=== PATIENT | female | born 1940 | race Caucasian/White ===

== ENCOUNTER → 2017-12-06 | Outpatient (CLI) | payer MEDICARE ==
[~2017-12-06] MED LIST: ATEN100T93 PO; BUSP10TA95 PO; CALC-941 PO; CEFU250T11 PO; CLON-329 PO; IOPAMIDOL 76% 75 ML INFUS BTL 75 ML ONE
--- NOTE | 2017-12-06 17:02 | RADIOLOGY IMAGING REPORT ---
FACILITY: [facility] PATIENT NAME: Tiffany Nicole : 1940 MR: [id number] V: [id number] EXAM DATE: ORDERING PHYSICIAN: SATISH MARTÍNEZ TECHNOLOGIST: Location: [facility] Patient: Tiffany iNcole : 1940 Visit/Account:[id number] Date of Sevice: 12/06/2017 CHEST W CONTRAST History: Bronchiectasis TECHNIQUE: Contiguous axial images were performed through the chest to the level of the adrenal gla nds following the administration of IV contrast. Coronal and sagittal reformatting was also perform ed. Dose Lowering Technique One of the following dose optimization techniques was utilized in the performance of this exam: Autom ated exposure control; adjustment of the mA and/or kV according to the patient's size; or use of an i terative reconstruction technique. Specific details can be referenced in the facility's radiology C T exam operational policy. Contrast: 75 mL Isovue-[id number] COMPARISON STUDIES: none. Lungs / Pleura: There is no evidence of pleural effusions or pulmonary infiltrates. There is a 5 m m groundglass nodule posterior aspect of the lingula best seen on image 47 of series 3 there is no ev idence of emphysema. There is very mild bronchial wall thickening in the lower lobes. Mediastinum/nodes: negative. Heart and vessels: There are mild vascular calcifications in the aortic arch and branch vessels. Left atrium appears very prominent. 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 The re are extensive spondylotic changes of the visualized cervical thoracic and lumbar spine Upper abdomen: Postsurgical changes from a cholecystectomy IMPRESSION: There is a 5 mm groundglass nodule posterior aspect of the lingula. For groundglass nodules this size , no routine follow-up is recommended. Very mild bronchial wall thickening in the lower lobes. The left atrium appears very prominent. Incidental noted is a single left pulmonary vein draining in to the left atrium posteriorly following the union of the superior and inferior left pulmonary veins which join to a common trunk Report Dictated By: Jaki Eldridge MD at 12/06/2017 4:39 PM Report E-Signed By: Jaki Eldridge MD at 12/06/2017 4:57 PM WSN:[id number]
== END ==
LOC: CT 12:42
PROVIDERS: ATTEND Internal Medicine Pulmonary Disease
DX: R91.8 Other nonspecific abnormal finding of lung field (principal)
CPT/HCPCS: 71260; Q9967

== ENCOUNTER → 2017-12-25 | Outpatient (CLI) | payer MEDICARE, OTHER ==
[~2017-12-25] MED LIST changes: +ATEN-1 PO; +CALC600T63 PO; +GUAI-652 PO; -IOPAMIDOL 76% 75 ML INFUS BTL 75 ML ONE; +SODI30SP6 NS
[2017-12-25 15:09] LABS: PLATELET COUNT, AUTOMATED 168 K/uL (150-450)
[2017-12-25 15:28] LABS: LDL CHOLESTEROL 121 mg/dl
== END ==
LOC: LAB 14:37
PROVIDERS: ATTEND Emergency Medicine
DX: I10 Essential (primary) hypertension (principal)
CPT/HCPCS: 36415; 82040; 82247; 82310; 82374; 82435; 82465; 82565; 82947; 83718; 84075; 84132; 84155; 84295; 84450; 84460; 84478; 84520; 85025

== ENCOUNTER → 2017-12-27 | Outpatient (CLI) | payer MEDICARE, OTHER ==
[~2017-12-27] MED LIST changes: +LISI20TA29 PO
--- NOTE | 2017-12-27 21:12 | RADIOLOGY IMAGING REPORT ---
FACILITY: [facility] [place] PATIENT NAME: Tiffany Nicole : 1940 MR: [id number] V: [id number] EXAM DATE: ORDERING PHYSICIAN: RADHA POSEY TECHNOLOGIST: Location: Patient: Tiffany Nicole : 1940 Visit/Account:[id number] Date of Sevice: 12/27/2017 DEXA Scan Clinical history: Postmenopausal estrogen deficiency. Comparison: None available. LUMBAR SPINE: The bone mineral density (BMD) measured from L3-L4 correlates with a Z-score 2.2 and a T-score of 0.0 which is Normal as defined by the World Health Organization. The corresponding risk of fracture in the lumbar spine is Not increased compared with a young adult reference population. HIP: Bone mineral density (BMD) measured in the Left total hip region correlates with a Z-score 1.1 and a T-score of -1.0 which is Normal as defined by the World Health Organization. The corresponding risk of fracture in the hip is increased 2 times compared with a young adult reference population. Bone mineral density (BMD) measured in the Femoral Neck region measures 0.899 g/cm2. FOREARM: The bone mineral density (BMD) measured in the ULTRADISTAL Left forearm, where trabecular bone predom inates, correlates with a Z-score of -2.0 and a T-score of -4.3 which is consistent with osteoporosis as defined by the World Health Organization. The corresponding risk of fracture in the distal forea rm is increased greater than 16 times compared with a young adult reference population. The bone mineral density (BMD) in the MIDSHAFT of the forearm, where cortical bone predominates, andres elates with a Z-score of -2.0 and a T-score of -4.3 which is consistent with osteoporosis as defined by the World Health Organization. The corresponding risk of fracture in the midshaft of the forearm i s increased greater than 16 times compared with a young adult reference population. There appear to be advanced chronic degenerative changes at the left wrist, poorly defined. Impression: 1. Lumbar spine: Normal. 2. Left Hip: Normal. 3. Femoral Neck: Bone Mineral Density is 0.899 g/cm2 4. Left Forearm: Osteoporosis, with significantly reduced bone mineral density. Advanced chronic de generative changes at the left wrist. The next DEXA scan of this patient should include the following sites: L1-L4, left hip, and left fore arm. FRAX? WHO Fracture Risk Assessment Tool link: <http://www.shef.ac.uk/FRAX/tool.jsp?locationValue=9> PLEASE NOTE: 1) The World Health Organization defines low BMD as follows: T-score Normal -1 or above Osteopenia < -1 and > -2.5 Osteoporosis < -2.5 without fractures Established osteoporosis < -2.5 with fractures 2) In general, you may wish to consider: Diagnosis Treatment Follow-up DEXA Normal BMD Prevention 2-3 years Osteopenia Prevention/therapy 1-2 years Osteoporosis Therapy Yearly 3) Fracture risk estimated from the T-score is more accurate for vertebral fractures (often spontane ous) than for hip fractures. Report Dictated By: Timothy Buck MD at 12/27/2017 8:51 PM Report E-Signed By: Timothy Buck MD at 12/27/2017 9:09 PM WSN:[id number]
== END ==
LOC: RAD 07:05
PROVIDERS: ATTEND Emergency Medicine
DX: Z13.820 Encounter for screening for osteoporosis (principal); M81.0 Age-related osteoporosis without current pathological fracture; Z78.0 Asymptomatic menopausal state
CPT/HCPCS: 77080

== ENCOUNTER → 2018-01-29 | Outpatient (CLI) | payer MEDICARE, OTHER ==
[~2018-01-29] MED LIST changes: +HYDR-2966 PO; +LISI-374 PO
== END ==
LOC: LAB 14:16
PROVIDERS: ATTEND Emergency Medicine
DX: I10 Essential (primary) hypertension (principal)
CPT/HCPCS: 36415; 82310; 82374; 82435; 82565; 82947; 84132; 84295; 84520

== ENCOUNTER → 2018-02-12 | Outpatient (CLI) | payer MEDICARE | LOC: LAB 15:54 | PROVIDERS: ATTEND Internal Medicine | DX: J47.9 Bronchiectasis, uncomplicated (principal) | CPT/HCPCS: 36415; 82784; 82785 ==

== ENCOUNTER → 2018-03-22 | Outpatient (CLI) | payer MEDICARE | LOC: LAB 03-08 13:14 | PROVIDERS: ATTEND Internal Medicine | DX: J47.9 Bronchiectasis, uncomplicated (principal) | CPT/HCPCS: 87116 ==

== ENCOUNTER → 2018-07-02 | Outpatient (CLI) | payer MEDICARE ==
[2018-07-02 15:15] LABS: PLATELET COUNT, AUTOMATED 218 K/uL (150-450)
[2018-07-02 15:32] LABS: LDL CHOLESTEROL 101 mg/dl
== END ==
LOC: LAB 14:59
PROVIDERS: ATTEND Emergency Medicine
DX: I10 Essential (primary) hypertension (principal)
CPT/HCPCS: 36415; 82040; 82247; 82310; 82374; 82435; 82465; 82565; 82947; 83718; 84075; 84132; 84155; 84295; 84450; 84460; 84478; 84520; 85025

== ENCOUNTER → 2018-09-14 | Outpatient (CLI) | payer MEDICARE ==
[~2018-09-14] MED LIST changes: +DIPH0.5D12 IM; +FLU180SY11 IM
== END ==
LOC: LAB 11:05
PROVIDERS: ATTEND Emergency Medicine
DX: R74.8 Abnormal levels of other serum enzymes (principal)
CPT/HCPCS: 36415; 82040; 82247; 82248; 84075; 84155; 84450; 84460